=== PATIENT | female | born 1980 | race Caucasian/White ===

== ENCOUNTER 2018-01-02 16:35 | Emergency (ER) | payer SELFPAY ==
[~2018-01-02] VITALS: Ht 162.6 cm; Wt 84.5 kg
[~2018-01-02 16:35] MED LIST: IBUP-1222 PO; PREN1TAB60 PO
[2018-01-02 17:29] LABS: BASOPHILS # (AUTO) 0.06 x10^3/uL (0-0.1); BASOPHILS % (AUTO) 1 % (0-1); EOSINOPHILS # (AUTO) 0.11 x10^3/uL (0-0.4); EOSINOPHILS % (AUTO) 2 % (1-7); LYMPHOCYTES # (AUTO) 2.44 x10^3/uL (1-3.4); LYMPHOCYTES % (AUTO) 35 % (22-44); MD NO; MEAN CORPUSCULAR HGB CONC 33.4 g/dL (32.4-35.8); MEAN CORPUSCULAR VOLUME 86.7 fL (80-100); MEAN PLATELET VOLUME 8.3 fL (7.4-10.4); MONOCYTES # (AUTO) 0.49 x10^3/uL (0.2-0.8); MONOCYTES % (AUTO) 7 % (2-9); NEUTROPHILS # (AUTO) 3.88 x10^3/uL (1.8-6.8); NEUTROPHILS % (AUTO) 56 % (42-75); PLATELET COUNT 293 x10^3/uL (130-400); RED BLOOD COUNT 4.94 x10^6/uL (3.82-5.3); RED CELL DISTRIBUTION WIDTH 14.8 % (9.6-15.2)
[2018-01-02 17:38] LABS: ALBUMIN 4.1 g/dL (3.4-5.0); ANION GAP 8 mmol/L (5-15); CALCIUM 8.4 mg/dL (8.5-10.1); CHLORIDE 107 mmol/L (98-107)
[2018-01-02 17:43] LABS: ALANINE AMINOTRANSFERASE 20 U/L (12-78); ALKALINE PHOSPHATASE 103 U/L (45-117); BILIRUBIN,TOTAL 0.2 mg/dL (0.2-1.0); CREATININE 1.06 mg/dL (0.55-1.02); TOTAL PROTEIN 7.7 g/dL (6.4-8.2)
[2018-01-02 18:32] LABS: MICROSCOPIC NOT IND
[2018-01-02 18:35] LABS: CULTURE INDICATED? NO
[2018-01-02 20:14] VITALS: BP 130/74
== END 2018-01-02 20:16 | disposition home or self-care (01) ==
LOC: ED 20:05
DX: N93.8 Other specified abnormal uterine and vaginal bleeding (principal); N83.202 Unspecified ovarian cyst, left side
CPT/HCPCS: 36415; 76830; 80053; 81003; 84703; 85025; 99285

== ENCOUNTER 2019-02-20 21:55 | Emergency (ER) | payer SELFPAY ==
[~2019-02-20] VITALS: Ht 162.6 cm; Wt 82.5 kg
[2019-02-20 21:57] VITALS: BP 139/74
== END 2019-02-21 00:20 | disposition home or self-care (01) ==
LOC: ED 22:24
DX: S80.12XA Contusion of left lower leg, initial encounter (principal); M79.652 Pain in left thigh; E11.9 Type 2 diabetes mellitus without complications; X58.XXXA Exposure to other specified factors, initial encounter; Y93.89 Activity, other specified; Y92.89 Other specified places as the place of occurrence of the external cause; Y99.8 Other external cause status
CPT/HCPCS: 36415; 85025; 99284

== ENCOUNTER 2019-08-06 06:58 | Day surgery (SDC) | payer OTHER ==
[2019-08-03 16:56] LABS: BASOPHILS # (AUTO) 0.02 x10^3/uL (0-0.1); BASOPHILS % (AUTO) 0 % (0-1); EOSINOPHILS # (AUTO) 0.08 x10^3/uL (0-0.4); EOSINOPHILS % (AUTO) 1 % (1-7); LYMPHOCYTES % (AUTO) 32 % (22-44); MD NO; MEAN CORPUSCULAR HEMOGLOBIN 28.7 pg (27.0-34.8); MEAN CORPUSCULAR HGB CONC 33.4 g/dL (32.4-35.8); MEAN CORPUSCULAR VOLUME 85.7 fL (80-100); MEAN PLATELET VOLUME 8.4 fL (7.4-10.4); MONOCYTES # (AUTO) 0.52 x10^3/uL (0.2-0.8); MONOCYTES % (AUTO) 8 % (2-9); NEUTROPHILS # (AUTO) 3.79 x10^3/uL (1.8-6.8); NEUTROPHILS % (AUTO) 58 % (42-75); PLATELET COUNT 264 x10^3/uL (130-400); RED BLOOD COUNT 4.96 x10^6/uL (3.82-5.3); RED CELL DISTRIBUTION WIDTH 15.1 % (9.6-15.2)
[2019-08-03 16:57] LABS: ALANINE AMINOTRANSFERASE 14 U/L (12-78); ALBUMIN 3.8 g/dL (3.4-5.0); ANION GAP 4 mmol/L (5-15); CALCIUM 8.2 mg/dL (8.5-10.1); CHLORIDE 109 mmol/L (98-107); CREATININE 0.91 mg/dL (0.55-1.02)
[2019-08-03 17:01] LABS: ALKALINE PHOSPHATASE 72 U/L (45-117); BILIRUBIN,TOTAL 0.3 mg/dL (0.2-1.0); TOTAL PROTEIN 7.3 g/dL (6.4-8.2)
[~2019-08-06] VITALS: Ht 165.1 cm; Wt 83.0 kg
[~2019-08-06 06:58] MED LIST changes: +CBD PO
[2019-08-06] MEDS ORDERED: PROMETHAZINE 25 MG/ML, 1ML IV PRN (07:30)
[2019-08-06] MEDS ORDERED: HYDROmorphone 2 MG/ML, 1ML IVPush PRN (07:30)
[2019-08-06] MEDS ORDERED: LABETALOL 5MG/ML, 20ML IV PRN (07:30)
[2019-08-06] MEDS ORDERED: hydrALAzine 20 MG/ML, 1ML IV PRN (07:30)
[2019-08-06] MEDS ORDERED: ONDANSETRON 2MG/ML, 2ML IV PRN (07:30)
[2019-08-06] MEDS ORDERED: FENTANYL PF 100 MCG/2ML IV PRN (07:30)
[2019-08-06] MEDS ORDERED: EPHEDRINE 50 MG/ML, 1ML IVPush PRN (07:30)
[2019-08-06] MEDS ORDERED: OXYcodone 5 MG/5 ML ORAL.SOL UDC PO PRN (07:30)
[2019-08-06] MEDS ORDERED: LIDOCAINE 1%-EPI 1:100K, 20ML ONE (08:00)
[2019-08-06] MEDS ORDERED: LIDOCAINE 1%, 20ML ONE (08:00)
[2019-08-06] MEDS ORDERED: SODIUM BICARBONATE 4.2%, 5ML ONE (08:00)
[2019-08-06] MEDS ORDERED: LACTATED RINGERS 1,000 ML IV SCH (09:03)
[2019-08-06] MEDS ORDERED: ACETAMINOPHEN 500 MG TABLET PO STA (09:04)
[2019-08-06 09:09] VITALS: BP 141/97
[2019-08-06] MEDS ORDERED: BUPIVACAINE/PF 0.5% ONE (09:10)
[2019-08-06] MEDS ORDERED: EPINEPHRINE 1 MG/ML, 1ML ONE (09:11)
[2019-08-06] MEDS ORDERED: SCOPOLAMINE PATCH, 1.5MG PATCH.TD72 TD STA (09:12)
[2019-08-06] MEDS ORDERED: ONDANSETRON 2MG/ML, 2ML IVPush STA (09:20)
[2019-08-06] MEDS ORDERED: MIDAZOLAM 1 MG/ML, 2ML ONE (09:28)
[2019-08-06] MEDS ORDERED: FENTANYL PF 250 MCG/5ML ONE (09:28)
[2019-08-06] MEDS ORDERED: CEFAZOLIN 1,000 MG ONE (09:29)
[2019-08-06] MEDS ORDERED: ONDANSETRON 2MG/ML, 2ML ONE (09:29)
[2019-08-06] MEDS ORDERED: DEXAMETHASONE 4 MG/ML, 1ML ONE (09:29)
[2019-08-06] MEDS ORDERED: SUCCINYLCHOLINE 20 MG/ML, 10ML ONE (09:29)
[2019-08-06] MEDS ORDERED: PROPOFOL 10 MG/ML, 20ML ONE (09:29)
[2019-08-06] MEDS ORDERED: KETOROLAC 30 MG/1 ML ONE (10:00)
[2019-08-06] MEDS ORDERED: LIDOCAINE-MPF 2% ,5ML ONE (10:00)
== END 2019-08-06 13:15 | disposition home or self-care (01) ==
LOC: OR 06:58 → OUT 13:15
PROVIDERS: ATTEND Surgery
DX: N60.22 Fibroadenosis of left breast (principal); N63.24 Unspecified lump in the left breast, lower inner quadrant; D24.2 Benign neoplasm of left breast; E11.9 Type 2 diabetes mellitus without complications; Z78.0 Asymptomatic menopausal state; Z98.890 Other specified postprocedural states; Z80.3 Family history of malignant neoplasm of breast; Z87.440 Personal history of urinary (tract) infections; Z88.5 Allergy status to narcotic agent; Z88.8 Allergy status to other drugs, medicaments and biological substances; Z91.09 Other allergy status, other than to drugs and biological substances
CPT/HCPCS: 19125; 19285; 36415; 76098; 80053; 84703; 85025; 88307; 93005; J0171; J0330; J0690; J1100; J1885; J2250; J2405; J2704; J3010; J3490; J7120

== ENCOUNTER 2020-01-01 15:48 | Emergency (ER) | payer OTHER ==
[~2020-01-01] VITALS: Ht 165.1 cm; Wt 74.6 kg
--- NOTE | 2020-01-01 16:13 | NUR ---
TASK RN NOTE: PT PRESENTS TO ED WITH GENERALIZED ABDOMINAL PAIN SINCE YESTERDAY AM. PT BELIEVES SHE EITHER HAS APPENDICITIS OR IS BEING POISONED BY HER . RESPIRATIONS EVEN AND UNLABORED ON RA. VSS. ERPA IN TO ASSESS PT. AWAITING ORDERS. HOB TO LEVEL OF COMFORT. CALL LIGHT IN REACH.
[2020-01-01] MEDS ORDERED: ONDANSETRON 2MG/ML, 2ML IVPush ONE (16:30)
[2020-01-01] MEDS ORDERED: SODIUM CHLORIDE FLUSH 10ML SYR IVF ONE (16:30)
--- NOTE | 2020-01-01 16:31 | NUR ---
TASK RN NOTE: IV START, LABS DRAWN AND SENT.
[2020-01-01 16:37] LABS: BASOPHILS # (AUTO) 0.02 x10^3/uL (0-0.1); BASOPHILS % (AUTO) 0 % (0-1); EOSINOPHILS # (AUTO) 0.04 x10^3/uL (0-0.4); EOSINOPHILS % (AUTO) 1 % (1-7); LYMPHOCYTES # (AUTO) 1.49 x10^3/uL (1-3.4); LYMPHOCYTES % (AUTO) 32 % (22-44); MD NO; MEAN CORPUSCULAR HEMOGLOBIN 29.3 pg (27.0-34.8); MEAN CORPUSCULAR HGB CONC 33.6 g/dL (32.4-35.8); MEAN CORPUSCULAR VOLUME 87.1 fL (80-100); MEAN PLATELET VOLUME 8.3 fL (7.4-10.4); MONOCYTES # (AUTO) 0.31 x10^3/uL (0.2-0.8); MONOCYTES % (AUTO) 7 % (2-9); NEUTROPHILS # (AUTO) 2.76 x10^3/uL (1.8-6.8); NEUTROPHILS % (AUTO) 60 % (42-75); PLATELET COUNT 266 x10^3/uL (130-400); RED BLOOD COUNT 4.82 x10^6/uL (3.82-5.3); RED CELL DISTRIBUTION WIDTH 15.1 % (9.6-15.2)
[2020-01-01] MEDS ORDERED: ONDANSETRON 2MG/ML, 2ML ONE (16:46)
[2020-01-01 16:48] LABS: ALANINE AMINOTRANSFERASE 17 U/L (12-78); ANION GAP 5 mmol/L (5-15); CALCIUM 9.2 mg/dL (8.5-10.1); CHLORIDE 108 mmol/L (98-107); CREATININE 0.99 mg/dL (0.55-1.02)
[2020-01-01 16:53] LABS: ALKALINE PHOSPHATASE 58 U/L (45-117); BILIRUBIN,TOTAL 0.4 mg/dL (0.2-1.0); TOTAL PROTEIN 7.6 g/dL (6.4-8.2)
[2020-01-01 17:39] LABS: MICROSCOPIC NOT IND
[2020-01-01 18:42] VITALS: BP 142/72
[2020-01-01] MEDS ORDERED: OMNIPAQUE 350 MG/ML, 100ML BOTTLE ONE (21:37)
== END 2020-01-01 19:42 | disposition home or self-care (01) ==
LOC: ED 17:24
DX: N88.8 Other specified noninflammatory disorders of cervix uteri (principal); R10.31 Right lower quadrant pain; R10.13 Epigastric pain; R10.9 Unspecified abdominal pain; E11.9 Type 2 diabetes mellitus without complications; R19.7 Diarrhea, unspecified; R11.0 Nausea
CPT/HCPCS: 36415; 74177; 80053; 81003; 83690; 84703; 85025; 96374; 99285; J2405; Q9967

== ENCOUNTER 2020-02-15 00:24 | Emergency (ER) | payer OTHER ==
[~2020-02-15] VITALS: Ht 162.6 cm; Wt 75.0 kg
[2020-02-15 01:03] LABS: BASOPHILS % (AUTO) 0 % (0-1); EOSINOPHILS # (AUTO) 0.14 x10^3/uL (0-0.4); EOSINOPHILS % (AUTO) 2 % (1-7); LYMPHOCYTES # (AUTO) 2.33 x10^3/uL (1-3.4); LYMPHOCYTES % (AUTO) 26 % (22-44); MD NO; MEAN CORPUSCULAR HEMOGLOBIN 29.1 pg (27.0-34.8); MEAN CORPUSCULAR HGB CONC 32.8 g/dL (32.4-35.8); MEAN CORPUSCULAR VOLUME 88.6 fL (80-100); MEAN PLATELET VOLUME 8.3 fL (7.4-10.4); MONOCYTES # (AUTO) 0.71 x10^3/uL (0.2-0.8); MONOCYTES % (AUTO) 8 % (2-9); NEUTROPHILS # (AUTO) 5.81 x10^3/uL (1.8-6.8); NEUTROPHILS % (AUTO) 65 % (42-75); PLATELET COUNT 266 x10^3/uL (130-400); RED BLOOD COUNT 4.45 x10^6/uL (3.82-5.3); RED CELL DISTRIBUTION WIDTH 15.7 % (9.6-15.2)
[2020-02-15 01:14] LABS: ALBUMIN 3.6 g/dL (3.4-5.0); ANION GAP 6 mmol/L (5-15); CALCIUM 8.5 mg/dL (8.5-10.1); CHLORIDE 109 mmol/L (98-107)
[2020-02-15 01:19] LABS: MICROSCOPIC NOT IND
--- NOTE | 2020-02-15 01:20 | NUR ---
PT IN ULTRASOUND AT THIS TIME.
--- NOTE | 2020-02-15 02:13 | NUR ---
Report recieved from [place]. Patient resting comfortably. No needs at this time
[2020-02-15 03:10] VITALS: BP 114/57
== END 2020-02-15 03:12 | disposition home or self-care (01) ==
LOC: ED 03:05
DX: O34.81 Maternal care for other abnormalities of pelvic organs, first trimester (principal); N83.292 Other ovarian cyst, left side; N83.291 Other ovarian cyst, right side; R11.0 Nausea; R10.31 Right lower quadrant pain; R10.2 Pelvic and perineal pain; E11.9 Type 2 diabetes mellitus without complications; Z3A.14 14 weeks gestation of pregnancy
CPT/HCPCS: 36415; 76801; 80048; 81003; 82040; 84702; 85025; 99284